=== PATIENT | female | born 1985 | race Caucasian/White ===

== ENCOUNTER → 2018-09-11 16:00 | Observation (INO) ==
[2018-09-11 14:17] LABS: Bilirubin,Urine Negative (Negative); Blood,Urine Negative (Negative); Clarity,Urine Clear (Clear); Color,Urine Yellow (Yellow); Glucose,Urine (UA) Normal (Normal); Ketones,Urine Negative (Negative); Leukocyte Esterase,Urine Small (Negative); Nitrite,Urine Negative (Negative); Protein,Urine Negative (Neg-Trace); Specific Gravity,Urine < 1.005 (1.010-1.025); Urobilinogen,Urine Normal (Normal)
[2018-09-11 14:19] LABS: Bacteria,Urine Few per hpf (None-Few); Hyaline Casts,Urine None Seen per lpf (None-Few); RBC,Urine 0-3 per hpf (0-3); Squamous Epithelial Cell,Urine Many per lpf (None-Few)
[2018-09-11 14:24] LABS: Amphetamine Screen,Urine Negative ng/mL (Cutoff=1000); Barbiturate Screen,Urine Negative ng/mL (Cutoff=200); Benzodiazepines Screen,Urine Negative ng/mL (Cutoff=200); Cannabinoid Screen,Urine Negative ng/mL (Cutoff = 50); Cocaine Screen,Urine Negative ng/mL (Cutoff= 300); Opiate Screen,Urine Negative ng/mL (Cutoff=300); Phencyclidine Screen,Urine Negative ng/mL (Cutoff=25)
--- NOTE | 2018-09-11 14:41 | OB/GYN Progress Note ---
Date of Encounter: 09/11/18 Time of Encounter: 14:37 - Assessment and Plan (1) 32 weeks gestation of Current Visit: Yes Status: Acute Admitted for observation (2) Vaginal discharge during in third trimester Current Visit: Yes Status: Acute Vaginosis panel pending (3) NST (non-stress test) reactive on surveillance Current Visit: Yes Status: Acute FHR 135 bpm moderate variability +15x15 accels no decels noted. Cat. 1 tracing Subjective - Subjective Principal diagnosis: vaginal bleeding Interval history: Patient is a 33 y/o @ 32w5d presents to labor and delivery with complaints of a bright red spot on her panty liner this morning. Patient denies any other bleeding since. Patient denies any other discharge, vaginal burning or itching. Patient denies any urinary symptoms including urinary frequency, dysuria or hesitancy. Patient denies any intercourse in the past 24 hours. Patient denies any complications with current . Patient receives care with Dr. Nelson. Antepartum ROS: vaginal bleeding, movement normal, no loss of fluid, no contractions Objective - Vital Signs Vital Signs: Intake and Output 09/10/18 09/11/18 09/11/18 23:59 07:59 15:59 Other: Weight 106 kg Patient Weight 09/11/18 23:59 Weight 106 kg - Exam FHR: auscultation normal, category 1 FHR comments: 135 bpm moderate variability +15x15 accels no decels noted. Uterine irritability noted. Cat. 1 tracing. Auscultation: bilateral: normal Abdomen: Present: normal appearance, soft, gravid Uterus: Present: normal, firm Cervical dilation: closed Cervix effacement: thick/firm station: ballotable Comments: Speculum exam: no blood visualized. Moderate amount of white discharge noted. Vaginosis panel collected and sent to lab. - Labs Labs: Abnormal lab results Ur Specific Sull[place] < 1.005 (1.010-1.025) L 09/11/18 13:58 Ur Leukocyte Esterase Small (Negative) H 09/11/18 13:58 3-5 per hpf (0-3) H 09/11/18 13:58 Ur Squamous Epith Cells Many per lpf (None-Few) H 09/11/18 13:58 Ur Culture Indicated? YES (NO) A 09/11/18 13:58
[2018-09-11 15:41] LABS: Candida DNA Not Detected (Not Detect); Gardnerella DNA Not Detected (Not Detect); Trichomonas DNA Not Detected (Not Detect)
== END | disposition home or self-care (01) ==
LOC: 1NENULAB
PROVIDERS: ADMIT Advanced Practice Midwife; ATTEND Advanced Practice Midwife

== ENCOUNTER 2018-10-24 14:45 | Observation (INO) ==
[2018-10-24 15:40] LABS: Basophils # 0.1 K/mcL (0.0-0.2); Basophils % 0.6 %; Eosinophils # 0.2 K/mcL (0.0-0.6); Eosinophils % 1.6 %; Hematocrit 31.7 % (35.3-44.9); Hemoglobin 10.2 g/dL (11.5-15.4); Immature Granulocytes % 2.9 % (0-4); Lymphocytes % 20.5 %; Mean Corpuscular HGB Conc 32.2 g/dL (31.6-35.5); Mean Corpuscular Hemoglobin 27.3 pg (28.0-33.3); Mean Corpuscular Volume 84.8 fL (83.0-100.0); Mean Platelet Volume 11.1 fL (9.4-12.4); Monocytes # 0.7 K/mcL (0.0-1.3); Monocytes % 6.5 %; Neutrophils # 6.7 K/mcL (1.6-8.9); Platelet Count 270 K/mcL (140-400); Red Blood Count 3.74 M/mcL (3.82-4.97); Red Cell Distribution Width 13.9 % (11.5-14.5); Segmented Neutrophils % 67.9 %; White Blood Count 9.9 K/mcL (4.3-11.1)
[2018-10-24 15:52] LABS: Creatinine,Urine 21 mg/dL
[2018-10-24 16:05] LABS: Alanine Aminotransferase 8 Units/L (7-52); Aspartate Amino Transferase 11 Units/L (13-39); BUN/Creatinine Ratio 9 (6-26); Blood Urea Nitrogen 5 mg/dL (6-20); Lactate Dehydrogenase 134 Units/L (140-271); Uric Acid 5.8 mg/dL (2.3-7.6); eGFR For African Americans > 60 (> 60); eGFR For Non-African Americans > 60 (> 60)
--- NOTE | 2018-10-24 17:16 | Discharge Summary ---
Date of Encounter: 10/24/18 Time of Encounter: 17:14 - Discharge Diagnosis (1) 38 weeks gestation of Priority: Primary Status: Acute Comments: Admit to observation for complaint of possible SROM (2) Elevated blood pressure affecting in third trimester, antepartum Priority: Secondary Status: Acute Comments: While patient was here for another complaint, several elevated blood pressures were noted. Pre-eclampsia labs were drawn and all returned within normal limits. Patient denies headache, visual disturbance, epigastric pain and swelling. (3) NST (non-stress test) reactive on surveillance Priority: Secondary Status: Acute Comments: FHR 140 bpm, moderate variability, +15x15 accels, no decels. (4) Vaginal discharge during in third trimester Priority: Secondary Status: Acute Comments: Vaginosis panel collected and pending at this time. FERN negative. - Discharge Medications Prescriptions: No Action Vits96/Iron Fum/Folic [ Tablet] 1 tab PO DAILY Home Medications: Vits96/Iron Fum/Folic [ Tablet] 1 tab PO DAILY 09/11/18 [History] Allergies/Adverse Reactions: Allergy/AdvReac Type Severity Reaction Status Date / Time Amoxicillin AdvReac Hives Verified 10/24/18 15:03 Data Procedures and tests throughout hospitalization: Laboratory Tests 10/24/18 10/24/18 10/24/18 15:30 15:30 15:30 WBC 9.9 RBC 3.74 L Hgb 10.2 L Hct 31.7 L MCV 84.8 MCH 27.3 L MCHC 32.2 RDW 13.9 Plt Count 270 MPV 11.1 Immature Gran % 2.9 Seg Neutrophils % 67.9 Lymphocytes % 20.5 Monocytes % 6.5 Eosinophils % 1.6 Basophils % 0.6 Neutrophils # 6.7 Lymphocytes # 2.0 Monocytes # 0.7 Eosinophils # 0.2 Basophils # 0.1 BUN 5 L Creatinine 0.57 L Est GFR ( Amer) > 60 Est GFR (Non-Af Amer) > 60 BUN/Creatinine Ratio 9 Uric Acid 5.8 AST 11 L ALT 8 Lactate Dehydrogenase 134 L Urine Creatinine 21 Protein/Creatinin Ratio TNP Urine Total Protein < 4 Labs on day of discharge: Labs from last 24 hours 10/24/18 10/24/18 10/24/18 15:30 15:30 15:30 WBC 9.9 RBC 3.74 L Hgb 10.2 L Hct 31.7 L MCV 84.8 MCH 27.3 L MCHC 32.2 RDW 13.9 Plt Count 270 MPV 11.1 Immature Gran % 2.9 Seg Neutrophils % 67.9 Lymphocytes % 20.5 Monocytes % 6.5 Eosinophils % 1.6 Basophils % 0.6 Neutrophils # 6.7 Lymphocytes # 2.0 Monocytes # 0.7 Eosinophils # 0.2 Basophils # 0.1 BUN 5 L Creatinine 0.57 L Est GFR ( Amer) > 60 Est GFR (Non-Af Amer) > 60 BUN/Creatinine Ratio 9 Uric Acid 5.8 AST 11 L ALT 8 Lactate Dehydrogenase 134 L Urine Creatinine 21 Protein/Creatinin Ratio TNP Urine Total Protein < 4 Date of admission: 10/24/18 14:30 Primary care physician: Odin Hwang MD Discharging clinician: Adrienne Rosa Anticipated date of discharge: 10/24/18 - Patient Status Disposition: Home, Self-Care Condition: Good Functional capacity at discharge: independent ambulation Overall status at discharge: patient is progressing back to baseline - Discharge Instructions Follow Up With: Odin Hwang MD [Primary Care Provider] - Additional Instructions: Keep OB appointments LABOR AND DELIVERY DISCHARGE INSTRUCTIONS Signs and Symptoms to be Reported to your Doctor Immediately: * Sudden gush, continuous or intermittent lead of fluid from vagina (note the time of gush and color of fluid) * Onset of bright red vaginal bleeding with or without pain (if you had a vaginal exam during this visit you may notice some dark red spotting. This is normal.) * Contractions that are 5 minutes apart (from the beginning of one contraction to the beginning of the next) and last 45-60 seonds; contractions that you can no longer walk, talk or laugh through. * A change in the baby's activity. This could be an increase or decrease in activity. * Severe headache which does not go away with tylenol. * Sudden swelling in the face, hands, arms and/or legs. * Upper abdominal pain - sometimes associated with heartburn or nausea and is not relieved by Maalox, Mylanta or Tums. * Kick Counts __ One hour after a meal, lay down on one side in a quiet place. Count the number of time the baby moves during an hour. If less than 6 movements, notify your physician Diet: *Force fluids, 8 to 10 tall glasses of fluid per day - may include popsicles and jello *Limit caffeine - this includes chocolate, coffee, tea, any soft drink containing such as all avinash, Esteban Yellow and Mountain Dew - Diet and Activity Activity: resume usual activities as tolerated Diet: regular diet Hospital Course BPM ARCHITECT Hospital course: Patient arrived at 38w6d with complaint of possible SROM today. She woke up and states her panties were very wet. She put on a panty liner and it has not continued to be wet. She does report positive movement and denies vaginal bleeding and contractions. She denies intercourse in the last 24 hours. Nitrazine to the perineum was negative. SSE completed with negative pooling and negative FERN test. Small amount of creamy discharge noted in vagina and sample collected for vaginosis panel. During stay, patient was noted to have several elevated blood pressures and she does report a history of pre-eclampsia with her previous . She denies any s/s of pre-e but labs were collected and all returned WNL. Blood pressures did return to normal level without intervention. She is to follow up as scheduled with her OB provider for routine care. She will be contacted with any abnormal vaginosis panel results and treated as needed. Time Attestation: Total time spent providing and/or coordinating discharge services: Time Spent: Less than 30 minutes Exam - Constitutional General appearance IM: A&O X 3, pleasant, no acute distress, answers questions appropriately - Respiratory Respiratory exam: Present: CTAB. Absent: respiratory distress - Cardiovascular Cardiovascular exam IM: Present: RRR, +S1, +S2. Absent: irregular rhythm - GI/Abdominal GI/Abdominal exam IM: normal bowel sounds, soft - Rectal Rectal exam: deferred - External exam: normal external exam - Extremities Exam Extremities exam IM: Present: full ROM, normal capillary refill, normal inspection. Absent: calf tenderness - Neurological Exam Neurological exam: alert, normal gait, oriented X3 - VTE Reasons for not Prescribing Prophylaxis: Treatment not Indicated - Low risk for VTE
[2018-10-24 17:37] LABS: Candida DNA Not Detected (Not Detect); Gardnerella DNA Not Detected (Not Detect); Trichomonas DNA Not Detected (Not Detect)
== END 2018-10-24 17:15 | disposition home or self-care (01) ==
LOC: 1NENULAB
PROVIDERS: ADMIT Registered Nurse; ATTEND Registered Nurse

== ENCOUNTER 2018-10-29 12:15 | Inpatient (IN) ==
[~2018-10-29 12:15] MED LIST: *HR* Nalbuphine 10 MG/ML AMPUL IVP PRN; Famotidine 20 MG/2 ML VIAL IVP PRN; Metoclopramide 10 MG/2 ML VIAL IVP PRN; Naloxone 0.4 MG/ML INJ IVP PRN; Ondansetron 4 MG/2 ML VIAL IVP PRN; Penicillin G Potassium 5,000,000 UNIT in 0.9 % Sodium Chloride Mini Bag 100 ML IVPB ONE
--- NOTE | 2018-10-29 12:20 | OB/GYN History & Physical ---
Date of Encounter: 10/29/18 Time of Encounter: 12:17 Assessment and Plan (1) Decreased movement Current visit: Yes Status: Acute Qualifiers: Fetus number: single or unspecified fetus Trimester: third trimester Qualified Code(s): O36.8130 - Decreased movements, third trimester, not applicable or unspecified (2) 39 weeks gestation of Current visit: Yes Status: Acute History of Present Illness Chief complaint: Decreased movement 39-1/2 weeks HPI: Ms. Chapman is a 33 year old female who presents to labor and delivery at 39 weeks and 4 days complaining of decreased movement. She states baby is not been active since last p.m. On presentation heart rate was in the 140s and showing no accelerations. On vaginal examination she is 3 cm 50% effaced and -1 station with vertex presentation. Patient will be kept for induction of labor. She has allergies to amoxicillin as a child causing hives socially she denies tobacco, alcohol, illicit drug use. She has no history of abnormal Pap smears, STDs or pelvic infections. She has no chronic medical conditions. Surgical history is negative. Family history significant for maternal grandmother with breast cancer and a family history of cardiac disease. Past Med Surg Social Fam HX - Past Medical History Medical history: no medical history Psychiatric history: no psych history - Past Surgical History Surgical History: no surgical history - Social History Smoking Status: Former smoker Smokeless Tobacco Status: No Alcohol use: none Drug use: none - Family History Father Living Status: Still Living Hx Family Cardiac Disorders: Yes (HTN) Obstetrical History - Pregnancies : 2 Para: 1 Term: 1 Livin Medications and Allergies Vits96/Iron Fum/Folic [ Tablet] 1 tab PO DAILY 09/11/18 [History] Allergy/AdvReac Type Severity Reaction Status Date / Time Amoxicillin AdvReac Hives Verified 10/24/18 15:03 Review of System OB All systems PM: reviewed and no additional remarkable complaints except as stated Exam - Constitutional Constitutional: well developed, well nourished, no acute distress, average body habitus - HEENT HEENT: EOMI, PERRL, Normocephaly - Neck Neck exam: full ROM - Lungs Respiratory exam: CTAB - Cardiovascular Cardiovascular exam: RRR - Extremities Extremities exam: full ROM - Vagina Vagina: Present: normal moisture - Cervix Dilation: 3 Effacement: 50 Station: -2 - Uterus Uterus exam: Present: normal size Results All other labs normal.
[2018-10-29] MEDS ORDERED: D5% in 0.45% NACL 1,000 ML IVC ONE ×3 (12:23→21:05)
[2018-10-29 12:59] LABS: Basophils % 0.5 %; Eosinophils # 0.1 K/mcL (0.0-0.6); Eosinophils % 1.2 %; Hemoglobin 10.1 g/dL (11.5-15.4); Lymphocytes # 1.8 K/mcL (0.6-4.6); Lymphocytes % 20.5 %; Mean Corpuscular HGB Conc 32.6 g/dL (31.6-35.5); Mean Corpuscular Hemoglobin 27.7 pg (28.0-33.3); Mean Corpuscular Volume 85.2 fL (83.0-100.0); Mean Platelet Volume 11.1 fL (9.4-12.4); Monocytes # 0.6 K/mcL (0.0-1.3); Monocytes % 6.6 %; Neutrophils # 6.1 K/mcL (1.6-8.9); Platelet Count 266 K/mcL (140-400); Red Blood Count 3.64 M/mcL (3.82-4.97); Red Cell Distribution Width 13.7 % (11.5-14.5); Segmented Neutrophils % 69.2 %; White Blood Count 8.8 K/mcL (4.3-11.1)
[2018-10-29 13:08] LABS: Amphetamine Screen,Urine Negative ng/mL (Cutoff=1000); Barbiturate Screen,Urine Negative ng/mL (Cutoff=200); Benzodiazepines Screen,Urine Negative ng/mL (Cutoff=200); Cannabinoid Screen,Urine Negative ng/mL (Cutoff = 50); Cocaine Screen,Urine Negative ng/mL (Cutoff= 300); Opiate Screen,Urine Negative ng/mL (Cutoff=300); Phencyclidine Screen,Urine Negative ng/mL (Cutoff=25)
[2018-10-29] MEDS ORDERED: Oxytocin 20 units/ LR 1000 mL 20 UNIT/1,000 ML BAG IVC ONE (13:36)
[2018-10-29] MEDS ORDERED: Ringers Solution, Lactated 1,000 ML ONE ×3 (13:37→23:45)
--- NOTE | 2018-10-29 15:23 | Anesthesia Evaluation PreOp ---
Date of Encounter: 10/29/18 Time of Encounter: 15:21 - Past History Planned Operation: david Cardiac History: Denies any Significant Hx Pulmonary History: Denies Any Significant HX TONG HOOKER History: Denies Any Significant HX Other Medical History: GERD Anesthesia History: No Prior Anesthetic Complications, Past Anesthesia (david) : Yes Test: Positive Alcohol Use: none Drug use: none Medications and Allergies Vits96/Iron Fum/Folic [ Tablet] 1 tab PO DAILY 09/11/18 [History] Allergy/AdvReac Type Severity Reaction Status Date / Time Amoxicillin AdvReac Hives Verified 10/24/18 15:03 - Meds/Allergy Pre-op Review Medications Reviewed: Yes Allergies Reviewed: Yes Beta Blockers on Current Med List: No Anesthesia Results - Labs 10/29/18 12:28 Anesthesia Exam Height: 5'4" Weight: 1082 NPO (# of Hours): 2 Pain Scale: 5 Pain Scale Used: Numeric (1 - 10) - HEENT Pupil (Motor): Pupils equal Mallampati: II Teeth: Normal Oral Opening: Greater than 3 - TONG HOOKER LOC: Oriented TONG HOOKER Motor: Normal RUE, Normal LUE, Normal RLE, Normal LLE, Normal Face TONG HOOKER Sensory: Normal: RUE, LUE, RLE, LLE, Face - Cardiac Rhythm: Regular Murmur: None - Pulmonary Breath Sounds: bilateral Clear Respiratory Effort: Symmetrical Anesthesia Assess/Plan ASA Score: 2 Anesthetic Plan: Epidural (risks discussed, questions answered, consented) Autologous Blood: No Recovery Plan: Other
[2018-10-29] MEDS ORDERED: Penicillin G Potassium 2,500,000 UNIT in 0.9 % Sodium Chloride 100 ML IVPB SCH (17:30)
[2018-10-29] MEDS ORDERED: *HR* FentaNYL (PF) 100 MCG/2 ML VIAL EP ONE (18:58)
[2018-10-29] MEDS ORDERED: Epidural Premix (fent/bupiv) 110 ML EP SCH (19:00)
[2018-10-29] MEDS ORDERED: Epidural Premix (fent/bupiv) 110 ML EP ONE (19:01)
--- NOTE | 2018-10-29 19:26 | Anesthesia Procedures ---
Date of Encounter: 10/29/18 Time of Encounter: 19:23 Procedures: Anesthesia - Epidural/Spinal Patient ID/Chart reviewed: Yes Patient examined: Yes OB Eval: Gestational age: 39 OB Eval: : 2 OB Eval: Hx Para: 1 OB Eval: Dilated at (cm): 8 OB Eval: Contractions: Non-stressed pattern Consent Obtained: Yes Supplemental Oxygen: None/Room Air Site Prep: Aseptic Technique, Sterile prep and drape, 0.5% Chlorhexidine/Alcohol Patient position: upright Local Anesthetic: Lidocaine 1% Amount of Local Anesthetic used: 3 Touhy Needle Gauge: 18 Touhy Needle Depth (cm): 8 Catheter Depth at Skin (cm): 20 Test Dose (1.5% Lido + Epi): Volume given (mls): 3 Test Dose Result: Negative Loading Dose: Fentanyl (mcg): 100 Loading Dose: Other: rop 0.2% 5cc Loading Dose Administered: Thru Touhy Needle Infusion Med: 0.125% Bupivacaine w/ 2 mcg/ml Fentanyl Infusion Rate (mls/hr): 15 (pcea 5 cc q30") Catheter Secured in Place: Tegaderm Interspace Used: L2-L3 Loss of Resistance (JAYLIN): Yes Blood: No CSF: No Paresthesia: No Procedure: aseptic,tolerated well, VSS, effective Vitals + FHT's: 128/78 88 fht 138
[2018-10-30] MEDS ORDERED: Ringers Solution, Lactated 1,000 ML ONE ×2 (02:21→03:17)
[2018-10-30] MEDS ORDERED: *HR* Morphine Sulfate/PF 10 MG/10 ML AMPUL ONE (02:28)
[2018-10-30] MEDS ORDERED: Chloroprocaine/PF 20 ML VIAL INFILT ONE ×2 (02:29→02:48)
[2018-10-30] MEDS ORDERED: *HR* Oxytocin 10 UNIT/ML VIAL IM ONE ×2 (02:29→03:17)
[2018-10-30] MEDS ORDERED: cefOXitin 2,000 MG in 0.9 % Sodium Chloride Mini Bag 100 ML IVPB STA (02:32)
[2018-10-30] MEDS ORDERED: CefOXitin 2,000 MG VIAL ONE ×2 (02:56→17:25)
[2018-10-30] MEDS ORDERED: *HR* HYDROmorphone (PF) 1 MG/ML SYRINGE IVP PRN (03:05)
[2018-10-30] MEDS ORDERED: Ondansetron 4 MG/2 ML VIAL IVP PRN ×2 (03:05→05:52)
[2018-10-30] MEDS ORDERED: Acetaminophen IV 1,000 MG/100 ML INFUS..BTL IVPB ONE (03:05)
[2018-10-30] MEDS ORDERED: *HR* Meperidine 25 MG/ML SYRINGE IVP PRN (03:05)
--- NOTE | 2018-10-30 03:27 | OB/GYN Procedure Note ---
Section - Date of procedure: 10/30/18 Preop diagnosis: arrest of descent Post-op diagnosis: same (Macrosomia) Surgeon: Jeff Nelson Quantitated Blood Loss: 500 Was there an bilingual executive assistant present: Yes Vineyard Tender: Sudha Lyons Completions Manager: Delgado Abarca Anesthesia Type: Epidural section complications: none Disposition: PACU Specimens: Placenta - (s) Infant A Delivery Date: 10/30/18 Delivery Time: 02:55 Presentation: vertex Position: OA Route of delivery: other Gender: Female Viability: Viable Pounds: 9 Ounces: 14 Gram Weight: 4.49 kg at 1 minute: 9 at 5 minutes: 9 Specimens collected: cord blood Placenta: uterine exploration Cord: 3 umbilical vessels - Narrative Narrative: Patient progressed to complete and pushing. She remained at a -1 station for approximate 4 hours. She was able to bring down at all. Because this we decided to proceed with a section. Informed consent was obtained. Patient did agree and wish to proceed. Procedure; she was taken to the operating room with an IV in place. Her epidural was bolused. She was then prepped and draped in the usual sterile fashion. Once adequate analgesia was achieved, a Pfannenstiel incision was made. It was carried sharply through the subcutaneous taste and fatty tissue until the fascial layers reached. The fascia was then nicked in the midline and incised bilaterally with scissors. It was then dissected vertically for adequate exposure. Rectus abdominis musculature is and midline. The peritoneum sharply entered dissected vertically. A bladder blade was placed at the inferior margin of the incision. The bladder flap was then developed. A bladder blade was placed over the bladder flap and a low transverse incision was then made in lower uterine segment. Fluid was noted be clear. The infant's head was found floating in the pelvis. Baby was in the occiput anterior presentation. The incision was then delivered without difficulty. The rest the infant was then delivered. Infant cried immediately upon delivery. The course cut to cut. The infant was then passed to nursing in attendance. Cord blood was obtained. Placenta was delivered via uterine massage. Uterine lavage was performed. The uterus is delivered. The incision was closed with 0 Vicryl suture running locking fashion. A second imbricating layer was was performed for final hemostasis. The uterus was replaced the pelvic cavity. The pelvic cavity was then rinsed thoroughly with sterile water 2. C no bleeding the procedure was terminated. Sponge, needle, and instrument count correct 2. The fascia was then closed with 0 Vicryl suture running nonlocking fashion. The suprafascial region was rinsed thoroughly with sterile water 2 all bleeders cauterized. The skin was closed tereso. Patient tolerated procedure well. Estimated blood loss is 500 mL. Patient delivered a female weight was 9 lbs. 14 oz. with Apgars of 9 at 1 minute and 9 at 5 minutes.
[2018-10-30] MEDS ORDERED: Ondansetron 4 MG/2 ML VIAL ONE (03:33)
[2018-10-30] MEDS ORDERED: Sennosides 8.6 MG TABLET PO PRN (05:52)
[2018-10-30] MEDS ORDERED: Oxytocin 20 units/ LR 1000 mL 20 UNIT/1,000 ML BAG IVC SCH (05:52)
[2018-10-30] MEDS ORDERED: Metoclopramide 10 MG/2 ML VIAL IVP PRN (05:52)
--- NOTE | 2018-10-30 06:37 | Anesthesia Evaluation Post Op ---
Date of Encounter: 10/30/18 Time of Encounter: 06:36 - Vital Signs Vital Signs: Vital Signs/O2 Sat, Most Current Temp Pulse Resp BP Pulse Ox 97.8 F 81 18 105/61 96 10/30/18 06:10 10/30/18 06:10 10/30/18 06:10 10/30/18 06:10 10/30/18 06:10 - Lungs Lungs: Clear Ascult./Percussion - Airway Airway: Non-obstructed - Cardiovascular Regular Rate - Mental Status Mental Status: Alert & Oriented, Answers Appropriately - Pain Pain Scale: 3 Pain Scale used: Numeric (1 - 10) - Nausea Vomiting Nausea Vomiting: Not Present - Hydration Hydration: Tolerates oral liquids, Gee catheter - Discharge PostOp Status: Transfer Patient to floor
[2018-10-30] MEDS: cefOXitin 2,000 MG in Water for inj. (sterile) 10 ML IVP SCH ×2 (10:11→18:34)
[2018-10-30] MEDS: *HR* OxyCODONE/APAP 5/325 TABLET PO PRN ×2 (12:29→20:54)
[2018-10-30] MEDS: Ibuprofen 600 MG TABLET PO PRN ×2 (15:55→22:08)
[2018-10-30] MEDS: Simethicone 80 MG TAB.CHEW PO PRN (20:53)
[2018-10-31] MEDS: cefOXitin 2,000 MG in Water for inj. (sterile) 10 ML IVP SCH (02:38)
[2018-10-31 04:48] LABS: Basophils % 0.3 %; Eosinophils # 0.3 K/mcL (0.0-0.6); Hematocrit 25.2 % (35.3-44.9); Immature Granulocytes % 1.2 % (0-4); Lymphocytes # 2.4 K/mcL (0.6-4.6); Lymphocytes % 18.1 %; Mean Corpuscular HGB Conc 32.9 g/dL (31.6-35.5); Mean Corpuscular Volume 85.1 fL (83.0-100.0); Mean Platelet Volume 10.9 fL (9.4-12.4); Monocytes # 1.2 K/mcL (0.0-1.3); Platelet Count 225 K/mcL (140-400); Red Blood Count 2.96 M/mcL (3.82-4.97); Segmented Neutrophils % 69.4 %
[2018-10-31 04:57] LABS: Hemoglobin 8.3 g/dL (11.5-15.4)
[2018-10-31] MEDS: Ibuprofen 600 MG TABLET PO PRN ×3 (06:32→18:03)
[2018-10-31] MEDS: *HR* OxyCODONE/APAP 5/325 TABLET PO PRN ×3 (08:04→20:39)
[2018-10-31] MEDS: Prenatal Vit/FA 1 EACH TABLET PO SCH (08:04)
[2018-10-31] MEDS: Simethicone 80 MG TAB.CHEW PO PRN (08:20)
--- NOTE | 2018-10-31 09:56 | OB/GYN Progress Note ---
Date of Encounter: 10/31/18 Time of Encounter: 09:51 - Assessment and Plan (1) Status post delivery Current Visit: Yes Status: Acute continue routine post-op/post- care. continue pain management anticipate d/c tomorrow (2) Breast feeding status of mother Current Visit: Yes Status: Acute support PRN Subjective - Subjective Principal diagnosis: s/p Interval history: Pt is a 33 y/o s/p c/s - POD1. Patient is ambulating well and passing flatus. no BM yet. pain is well controlled no other complaints or concerns baby doing well, breast fed. anticipate d/c tomorrow - Date of procedure: 10/30/18 Preop diagnosis: arrest of descent Post-op diagnosis: same (Macrosomia) Surgeon: Jeff Rapp Blood Loss: 500 Was there an assistant dean of students present: Yes Supervisor Wood Room: Sudha Lyons Freight Clerk: Delgado Abarca Anesthesia Type: Epidural section complications: none Disposition: PACU Specimens: Placenta - Infant (s) Infant A Infant Delivery Date: 10/30/18 Delivery Time: 02:55 Presentation: vertex Position: OA Route of delivery: other Gender: Female Viability: Viable Pounds: 9 Ounces: 14 Gram Weight: 4.49 kg at 1 minute: 9 at 5 minutes: 9 Specimens collected: cord blood Placenta: uterine exploration Cord: 3 umbilical vessels - Narrative Narrative: Patient progressed to complete and pushing. She remained at a -1 station for approximate 4 hours. She was able to bring infant down at all. Because this we decided to proceed with a section. Informed consent was obtained. Patient did agree and wish to proceed. Procedure; she was taken to the operating room with an IV in place. Her epidural was bolused. She was then prepped and draped in the usual sterile fashion. Once adequate analgesia was achieved, a Pfannenstiel incision was made. It was carried sharply through the subcutaneous taste and fatty tissue until the fascial layers reached. The fascia was then nicked in the midline and incised bilaterally with scissors. It was then dissected vertically for adequate exposure. Rectus abdominis musculature is and midline. The peritoneum sharply entered dissected vertically. A bladder blade was placed at the inferior margin of the incision. The bladder flap was then developed. A bladder blade was placed over the bladder flap and a low transverse incision was then made in lower uterine segment. Fluid was noted be clear. The 's head was found floating in the pelvis. Baby was in the occiput anterior presentation. The incision was then delivered without difficulty. The rest the was then delivered. Infant cried immediately upon delivery. The course cut to cut. The was then passed to nursing in attendance. Cord blood was obtained. Placenta was delivered via uterine massage. Uterine lavage was performed. The uterus is delivered. The incision was closed with 0 Vicryl suture running locking fashion. A second imbricating layer was was performed for final hemostasis. The uterus was replaced the pelvic cavity. The pelvic cavity was then rinsed thoroughly with sterile water 2. C no bleeding the procedure was terminated. Sponge, needle, and instrument count correct 2. The fascia was then closed with 0 Vicryl suture running nonlocking fashion. The suprafascial region was rinsed thoroughly with sterile water 2 all bleeders cauterized. The skin was closed tereso. Patient tolerated procedure well. Estimated blood loss is 500 mL. Patient delivered a female infant weight was 9 lbs. 14 oz. with Apgars of 9 at 1 minute and 9 at 5 minutes. Patient reports: appetite normal, voiding normally, pain well controlled, ambulating normally Lebeau: doing well Objective - Vital Signs Latest vital signs: Vital Signs Temp Pulse Resp BP Pulse Ox 10/31/18 08:10 98.1 F 77 16 100/61 98 10/31/18 00:05 98.5 F 86 16 109/64 99 10/30/18 20:05 98.2 F 86 16 116/66 99 10/30/18 16:02 98.4 F 84 16 112/69 99 10/30/18 12:35 98.5 F 92 16 113/75 99 Intake and Output 10/30/18 10/31/18 10/31/18 23:59 07:59 15:59 Intake Total 500 / 500 Output Total 500 / 2550 3250 / 3250 Balance -490 / -2530 -2750 / -2750 Intake: IV Fluids Mefoxin 2,000 MG In Water for inj. (sterile) 10 ML @ 300 mls/ hr IVP Q8H [facility] Rx#:[id number] Oral 500 / 500 Output: Urine 3250 / 3250 Catheter 500 / 2550 Other: Weight 62.959 kg Patient Weight 10/31/18 23:59 Weight 62.959 kg - Exam Lungs: bilateral: normal Chest: Normal S1, Normal S2 Extremities: Present: normal Abdomen: Present: normal appearance Incision: Present: normal, dry, intact Uterus: Present: normal, firm Fundal Height: 2 (cm below umbilicus) Comments: mild lochia - Labs Labs: Laboratory Results - last 24 hr 10/31/18 04:26 WBC 13.0 H RBC 2.96 L Hgb 8.3 L D Hct 25.2 L MCV 85.1 MCH 28.0 MCHC 32.9 RDW 14.0 Plt Count 225 MPV 10.9 Immature Gran % 1.2 Seg Neutrophils % 69.4 Lymphocytes % 18.1 Monocytes % 9.0 Eosinophils % 2.0 Basophils % 0.3 Neutrophils # 9.0 H Lymphocytes # 2.4 Monocytes # 1.2 Eosinophils # 0.3 Basophils # 0.0
[2018-11-01] MEDS: *HR* OxyCODONE/APAP 5/325 TABLET PO PRN (03:23)
[2018-11-01] MEDS: Ibuprofen 600 MG TABLET PO PRN ×2 (03:23→10:10)
[2018-11-01 07:56] VITALS: BP 150/81
--- NOTE | 2018-11-01 08:53 | Discharge Summary ---
Date of Encounter: 11/01/18 Time of Encounter: 08:51 - Discharge Diagnosis (1) Status post primary low transverse section Priority: Primary Status: Acute Comments: Feeling well Tolerating regular diet Pain well-controlled with by mouth pain meds Ambulating independently Voiding independently Lochia light Passing flatus, no BM yet Vital signs stable Discharge home today (2) Acute blood loss as cause of postoperative anemia Priority: Secondary Status: Acute Comments: Continue iron supplementation twice a day for 1 month (3) Breast feeding status of mother Priority: Secondary Status: Acute Comments: Community resources provided - Discharge Medications Prescriptions: New Ferrous Sulfate 325 mg PO BIDWM #60 tablet Ibuprofen [Motrin] 600 mg PO Q6HR PRN #30 tablet PRN Reason: Cramping OxyCODONE/APAP 5/325 [Percocet 5/325 MG] 1 each PO Q6H PRN 5 Days #20 tablet PRN Reason: Moderate pain 4-6 Docusate [Colace] 100 mg PO BID #30 capsule Continued Vits96/Iron Fum/Folic [ Tablet] 1 tab PO DAILY Home Medications: Vits96/Iron Fum/Folic [ Tablet] 1 tab PO DAILY 09/11/18 [History] Docusate [Colace] 100 mg PO BID #30 capsule 11/01/18 [Rx] Ferrous Sulfate 325 mg PO BIDWM #60 tablet 11/01/18 [Rx] Ibuprofen [Motrin] 600 mg PO Q6HR PRN #30 tablet 11/01/18 [Rx] OxyCODONE/APAP 5/325 [Percocet 5/325 MG] 1 each PO Q6H PRN 5 Days #20 tablet 11/01/18 [Rx] Allergies/Adverse Reactions: Allergy/AdvReac Type Severity Reaction Status Date / Time Amoxicillin AdvReac Hives Verified 10/24/18 15:03 Data Procedures and tests throughout hospitalization: Laboratory Tests 10/29/18 10/29/18 10/31/18 12:28 12:28 04:26 WBC 8.8 13.0 H RBC 3.64 L 2.96 L Hgb 10.1 L 8.3 L D Hct 31.0 L 25.2 L MCV 85.2 85.1 MCH 27.7 L 28.0 MCHC 32.6 32.9 RDW 13.7 14.0 Plt Count 266 225 MPV 11.1 10.9 Immature Gran % 2.0 1.2 Seg Neutrophils % 69.2 69.4 Lymphocytes % 20.5 18.1 Monocytes % 6.6 9.0 Eosinophils % 1.2 2.0 Basophils % 0.5 0.3 Neutrophils # 6.1 9.0 H Lymphocytes # 1.8 2.4 Monocytes # 0.6 1.2 Eosinophils # 0.1 0.3 Basophils # 0.0 0.0 Urine Opiates Screen Negative Ur Buprenorphine Scrn Negative Ur Barbiturates Screen Negative Ur Phencyclidine Scrn Negative Ur Amphetamines Screen Negative U Benzodiazepines Scrn Negative Urine Cocaine Screen Negative U Marijuana (THC) Screen Negative Ur Drug Screen Interp See Below Date of admission: 10/29/18 12:15 Primary care physician: PCP NONE Discharging clinician: Enid Ovalle Anticipated date of discharge: 11/01/18 - Patient Status Disposition: Home, Self-Care Condition: Good Functional capacity at discharge: independent ambulation Overall status at discharge: patient is progressing back to baseline - Discharge Instructions Follow Up With: NONE,PCP [Primary Care Provider] - Jeff Nelson MD [Partnered Physician] - - Diet and Activity Activity: increase activity as tolerated Diet: regular diet Hospital Course Reason for admission: IUP at term Delivery: section Episiotomy: none Laceration: none Other procedures: none complications: none Discharge diagnosis: IUP at term delivered baby: female Time Attestation: Total time spent providing and/or coordinating discharge services: Time Spent: Less than 30 minutes - VTE Documentation of Mechanical Device: Intermittent pneumatic compression device Exam - Constitutional Vitals: Temp Pulse Resp BP Pulse Ox 97.7 F 66 14 150/81 100 11/01/18 07:55 11/01/18 07:55 11/01/18 07:55 11/01/18 07:55 10/31/18 20:40 General appearance IM: A&O X 3, morbidly obese, pleasant, no acute distress, answers questions appropriately - Respiratory Respiratory exam: Present: CTAB - Cardiovascular Cardiovascular exam IM: Present: RRR, +S1, +S2 - GI/Abdominal GI/Abdominal exam IM: normal bowel sounds, no peritoneal signs Incision: normal, dry, intact - Rectal Rectal exam: deferred - Uterine Tone: Firm Uterus Position: At Umbilicus, Midline - Extremities Exam Extremities exam IM: Present: full ROM, normal capillary refill, normal inspection, radial pulses palpable and symmetrical - Neurological Exam Neurological exam: alert, CN II-XII intact, normal gait, oriented X3, reflexes normal, no focal deficits, strengths equal and symetr throughout - Psychiatric Additional comments: Patient denies history of anxiety and depression. Signs and symptoms of depression discussed with patient and partner and both verbalized understanding of when to seek help.
[2018-11-01] MEDS: Prenatal Vit/FA 1 EACH TABLET PO SCH (10:11)
== END 2018-11-01 12:15 | disposition home or self-care (01) | DRG 787 ==
LOC: 1NENULAB → 1NENUOBS 10-30 05:51
PROVIDERS: ADMIT Obstetrics & Gynecology; ATTEND Obstetrics & Gynecology